=== PATIENT | male | born 1945 | race Caucasian/White ===

== ENCOUNTER 2025-04-26 11:38 | Emergency (ER) | payer OTHER ==
[2025-04-26 11:50] VITALS: BP 126/67; PULSE 72; RESP 19; TEMP 98.6; BMI 19.6
[2025-04-26 13:08] LABS: ABSOLUTE IMMATURE GRANULOCYTES 0.01 x10^3/uL (0.0-0.031); BASOPHILS # 0.05 x10^3/uL (0.01-0.08); EOSINOPHIL % 2.2 % (0.8-7.0); EOSINOPHILS # 0.16 x10^3/uL (0.04-0.54); MCHC 31.6 g/dl (32.3-36.5); MEAN CELL VOLUME 88.6 fl (79.0-92.2); MEAN PLT VOLUME 9.7 fl (9.4-12.4); MONOCYTE # 0.72 x10^3/uL (0.30-0.82); MONOCYTE % 9.8 % (5.3-12.2); RDW 13.1 % (12.2-16.6)
[2025-04-26 13:53] LABS: ERYTHROCYTE SEDIMENTATION RATE 22 mm/hr (0-20)
[2025-04-26 14:02] LABS: HCV DIAGNOSTIC IN-HOUSE W/RFLX NON-REACTIVE (NONREACTIVE); HIV INTERPRETATION NEGATIVE (NEGATIVE)
[2025-04-26] MEDS ORDERED: VANCOMYCIN HCL 1,500 MG in DEXTROSE 5%-WATER - 500 ML IVPB ONE (14:04)
[2025-04-26] MEDS ORDERED: IBUPROFEN 400 MG TABLET (FP) PO ONE (14:13)
[2025-04-26] MEDS: IBUPROFEN 400 MG TABLET (FP) PO ONE (14:15)
[2025-04-26] MEDS ORDERED: PIPERACILLIN/TAZOB 4.5 GM 4.5 GM/100 ML BAG IVPB ONE (14:34)
[2025-04-26] MEDS ORDERED: VANCOMYCIN PREMIX 1.5 GM 1,500 MG/300 ML BAG IVPB ONE (15:00)
[2025-04-26] MEDS: PIPERACILLIN/TAZOB 3.375 GM 4.5 GM in DEXTROSE 5%-WATER - 50 ML IVPB ONE (15:32)
== END 2025-04-26 15:20 | disposition home or self-care (01) ==
LOC: JER 11:38 → JERBED 14:03 → UNDOADMIN 14:03 → JER 15:20
DX: E11.621 Type 2 diabetes mellitus with foot ulcer (principal); L97.519 Non-pressure chronic ulcer of other part of right foot with unspecified severity
CPT/HCPCS: 36415; 73140-TC-RT-FY; 85025; 85651; 86140; 86803; 87070; 87205; 87389; 99284-25